=== PATIENT | female | born 1960 | race Caucasian/White ===

== ENCOUNTER 2025-03-19 14:41 | Emergency (ER) | payer MEDICARE, OTHER ==
[~2025-03-19] VITALS: Ht 162.6 cm; Wt 48.5 kg
[2025-03-19] MEDS ORDERED: ONDANSETRON HCL/PF 4 MG/2 ML VIAL ONE (15:16)
[2025-03-19 15:29] LABS: BASOPHILS % (AUTO) 0.3 % (0.0-2.0); EOSINOPHILS % (AUTO) 0.2 % (0.0-6.0); HEMATOCRIT 30 % (33-45); HEMOGLOBIN 9.8 g/dL (11.5-14.8); LYMPHOCYTES # (AUTO) 1.2 K/uL (0.8-4.8); LYMPHOCYTES % (AUTO) 10.5 % (20.0-44.0); MEAN CORPUSCULAR HEMOGLOBIN 29 PG (26.0-33.0); MEAN CORPUSCULAR HGB CONC 33 g/dl (31.0-36.0); MEAN CORPUSCULAR VOLUME 88 fL (82-100); MONOCYTES # (AUTO) 0.5 K/uL (0.1-1.30); MONOCYTES % (AUTO) 4.6 % (2.0-12.0); NEUTROPHILS # (AUTO) 9.6 K/uL (1.8-8.9); NEUTROPHILS % (AUTO) 84.4 % (43.0-81.0); PLATELET COUNT (AUTO) 385 K/uL (150-450); RED BLOOD CELL COUNT(AUTO) 3.42 MIL/uL (4.0-5.2); RED CELL DISTRIBUTION WIDTH 18.4 % (11.5-15.0); WHITE BLOOD COUNT (AUTO) 11.3 K/uL (4.3-11.0)
[2025-03-19] MEDS: ONDANSETRON HCL/PF 4 MG/2 ML VIAL IVP ONE (15:30)
[2025-03-19] MEDS: IV NS 0.9% 1,000 ML BAG IV ONE (15:30)
[2025-03-19 15:51] LABS: INR 0.98 (0.91-1.10); PARTIAL THROMBOPLASTIN TIME 29.1 SEC (24.3-34.3); PROTHROMBIN TIME 10.4 SECS (9.2-11.1)
[2025-03-19 15:57] LABS: CALCIUM, SERUM 8.8 mg/dL (8.5-10.1); CREATININE 0.5 mg/dL (0.6-1.3); POTASSIUM 4.2 mmol/L (3.5-5.1)
[2025-03-19] MEDS ORDERED: PANTOPRAZOLE 40 MG VIAL ONE (16:31)
[2025-03-19] MEDS ORDERED: oxyCODONE HCL SR 10MG TAB.SR.12H PO ONE (16:32)
[2025-03-19] MEDS ORDERED: ONDA4TAB5 PO (16:35)
[2025-03-19] MEDS: oxyCODONE HCL SR 10MG TAB.SR.12H PO SCH (16:40)
[2025-03-19] MEDS: PANTOPRAZOLE 40 MG VIAL IV ONE (16:40)
[2025-03-19 17:04] VITALS: BP 114/72; TEMP 98.9; O2SAT 95
== END 2025-03-19 17:04 | disposition home or self-care (01) ==
LOC: ER 14:41
DX: K92.0 Hematemesis (principal); F17.200 Nicotine dependence, unspecified, uncomplicated; Z85.01 Personal history of malignant neoplasm of esophagus
CPT/HCPCS: 99285; 71250; 96374; 96361; 71045; 96375; 74176; 85025; 80048; 36415; 85730; J2405; J7030; J2470; A4223